=== PATIENT | male | born 1950 | race Caucasian/White ===

== ENCOUNTER 2016-07-10 11:04 | Observation (INO) | payer OTHER ==
[2016-07-10] MEDS ORDERED: NS 0.9% 1000 ML* 2,000 ML IV ONE ×2 (11:53→12:17)
[2016-07-10 12:06] LABS: Hematocrit 50 % (42-52); Hemoglobin 16.6 g/dl (14.0-18.0); Mean Corpuscular HGB Conc 33 g/dl (31-36); Mean Corpuscular Hemoglobin 29 pg (27-31); Mean Corpuscular Volume 87 fL (80-94); Mean Platelet Volume 10 um3 (7.4-10.4); Red Blood Count 5.72 10^6/ul (4.0-5.4); Red Cell Distribution Width 15 % (10.5-15); White Blood Count 7.4 10^3/ul (3.5-10.8)
[2016-07-10 12:18] LABS: Albumin 4.4 g/dL (3.2-5.2); BUN/Creatinine Ratio 18.8 (8-20); C Reactive Protein 4.48 mg/L (< 5.00); Calcium 9.6 mg/dL (8.6-10.3); EGFR African American 80.2 (>60); EGFR Non-African American 62.4 (>60); Globulin 2.8 g/dL (2-4); Magnesium 2.2 mg/dL (1.9-2.7); Potassium 4.1 mmol/L (3.5-5.0); Total Protein 7.2 g/dL (6.4-8.9)
[2016-07-10 12:20] LABS: Troponin I 0.01 ng/mL (<0.04)
[2016-07-10] MEDS ORDERED: Ondansetron INJ* 2 MG/ML VIAL IV ONE (12:20)
[2016-07-10] MEDS ORDERED: Meclizine TAB* 12.5 MG PO ONE (12:20)
[2016-07-10 12:27] LABS: TSH (Thyroid Stimulating Horm) 0.88 mcIU/mL (0.34-5.60)
--- NOTE | 2016-07-10 12:52 | RAD ---
HISTORY: Dizziness COMPARISONS: January 27, 2008 VIEWS:1: Single frontal portable view of the chest at 12:30 PM FINDINGS: LINES AND TUBES: None. CARDIOMEDIASTINAL SILHOUETTE: The cardiomediastinal silhouette is normal for portable technique. PLEURA: The costophrenic angles are sharp. No pleural abnormalities are noted. LUNG PARENCHYMA: The lungs are clear. ABDOMEN: The upper abdomen is clear. There is no subphrenic gas. BONES AND SOFT TISSUES: No bone or soft tissue abnormalities are noted. IMPRESSION: NO ACTIVE CARDIOPULMONARY DISEASE.
[2016-07-10 12:54] LABS: Urine Bilirubin Negative (Negative); Urine Glucose Negative (Negative); Urine Nitrite Negative (Negative)
--- NOTE | 2016-07-10 13:00 | RAD ---
Indication: Headaches, dizziness. CT of the brain was performed without IV contrast. Ventricular structures are midline. No midline shift is noted. The extraction spaces are unremarkable. There is no evidence of intracranial mass or hemorrhage. No other high or low density lesions are identified. Mastoid air cells and paranasal sinuses are otherwise unremarkable. IMPRESSION: No intracranial mass or hemorrhage is noted.
[2016-07-10] MEDS ORDERED: Aspirin Low Dose CHEW TAB* 81 MG PO ONE (13:45)
[2016-07-10] MEDS ORDERED: Ondansetron INJ* 2 MG/ML VIAL IV PRN (14:31)
[2016-07-10] MEDS ORDERED: Acetaminophen TAB* 325 MG PO PRN (14:31)
[2016-07-10] MEDS ORDERED: Meclizine TAB* 12.5 MG PO PRN (14:33)
--- NOTE | 2016-07-10 16:33 | HP ---
ADMISSION HISTORY AND PHYSICAL: DATE OF ADMISSION: 07/10/16 PRIMARY CARE PROVIDER: Dr. Harvey. ADMITTING PROVIDER: AMRITA Grace SUPERVISING PHYSICIAN: Dr. Heather Jenkins.* (DICTATED BY AMRITA GRACE) CHIEF COMPLAINT: Dizziness, diaphoresis, left arm ache, and mild chest pain. HISTORY OF PRESENT ILLNESS: This is a 66-year-old gentleman with obesity, hypertension, and history of vertigo, who presents to the emergency department with complaints of dizziness accompanied by significant diaphoresis and ache in his left arm and some mild substernal pain. Symptoms were present when he awoke this morning and seemed to have improved since reaching the emergency department. The patient does have multiple episodes of vertigo in the past, and he did receive a dose of meclizine upon reaching the emergency department and his dizziness seems to have subsided. The diaphoresis, left arm ache, and chest pain or pressure are certainly new symptoms for him and were concerning enough that his encouraged him to seek care in the emergency department. PAST MEDICAL HISTORY: 1. Hypertension. 2. Vertigo. 3. Obesity. PAST SURGICAL HISTORY: Varicose vein stripping procedure which was complicated by severe infection. HOME MEDICATIONS: 1. Losartan/hydrochlorothiazide 50/12.5 one tab p.o. b.i.d. 2. Metoprolol succinate 25 mg p.o. b.i.d. FAMILY HISTORY: Denies any history of coronary artery disease. SOCIAL HISTORY: The patient lives at home with his . 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 Denies any smoking history. Has occasional alcohol consumption. REVIEW OF SYSTEMS: As noted in the HPI, otherwise negative PHYSICAL EXAMINATION GENERAL: This is a pleasant obese gentleman lying comfortably in a hospital stretcher, in no acute distress, accompanied by his . VITAL SIGNS: Initial vitals, temperature 98.1 degrees Fahrenheit, heart rate 71 beats per minute, respiratory rate 16, oxygen saturation 96% on room air, blood pressure 153/80 mmHg. HEENT: Head is normocephalic, atraumatic. Mucous membranes are pink and moist. RESPIRATORY: Lungs are clear to auscultation without wheezes, crackles, or rhonchi. CARDIOVASCULAR: Heart has regular rate and rhythm without murmurs, rubs, or gallops. ABDOMEN: Soft and nontender to palpation. EXTREMITIES: The patient has trace to 1+ lower extremity edema. PSYCH: The patient is alert and appropriately oriented. SKIN: Limited exam shows no concerning rashes or lesions. DIAGNOSTIC STUDIES/LAB DATA: CBC is largely unremarkable with a white blood cell count of 7400, hemoglobin 16.6 g/dL, and platelet count of 146,000. INR normal at 0.99. Comprehensive metabolic panel is unremarkable. Sodium of 137 mmol/L, potassium 4.1 mmol/L, serum bicarb of 30, BUN 22, creatinine 1.17 with estimated GFR of 62. Random glucose is 176 mg/dL. Troponin is negative at 0.01. CRP is essentially negative at 4.4. TSH is normal at 0.88. Urinalysis is unremarkable. Imaging: Chest x-ray shows no acute disease. CT of the head shows no acute disease. EKG shows a sinus rhythm with what looks to be left bundle branch block. Compared to EKG from 2008 this does appear similar. ASSESSMENT AND PLAN: This is a 66-year-old obese gentleman with history of hypertension and vertigo, who presents with dizziness, left arm pain, and subtle chest pain. 1. Chest pain - some of the patient's symptoms could be consistent with this being cardiac in origin. He has not had a recent stress test. He has risk factors including obesity, his age, and hypertension for heart disease. We plan to bring the patient in for an observation. We will maintain continuous telemetry monitoring, cycle troponins, and plan stress testing tomorrow morning. We will empirically start aspirin and a statin. We will perform fasting lipid panel in the morning. 2. Dizziness - the patient does have a history of vertigo and it seems this improved with meclizine. Whether or not this is interpreted as cardiac is difficult to say. We will treat with additional doses of meclizine if his dizziness returns, but at this time he is asymptomatic. 3. Hypertension - continue home antihypertensives including losartan and hydrochlorothiazide and metoprolol. 4. Hyperglycemia - his random glucose is 176. Plan to check to hemoglobin A1c. 5. Suspect sleep apnea - the patient is quite large with a thick neck and has also been complaining of fatigue for several months or perhaps years. Would recommend an outpatient sleep study to assess for obstructive sleep apnea. 6. Obesity with BMI of 45. 7. Code status - the patient is full code. 8. Healthcare proxy is his . 9. DVT prophylaxis - the patient is at moderate risk for DVT and will be placed on Lovenox 40 mg subcu daily. DISPOSITION: This is a 66-year-old male being admitted under observation status for chest pain equivalent with anticipated discharge tomorrow following stress testing. AMRITA GRACE CC: Dr. Harvey* [id number]/[facility] #: [id number] MTDD
[2016-07-10] MEDS: Enoxaparin(*) 40 MG/0.4 ML SYR SUBCUT SCH (16:59)
--- NOTE | 2016-07-10 20:56 | ED ---
Hattie Nolasco Janilya, scribed for Minor Aguirre MD on 07/10/16 at 1213 . Dizziness - HPI Summary HPI Summary: A 66 y/o male [place] [facility] w/ a sudden onset of constant dizziness starting this morning. Pt states he felt normal yesterday. When he woke up this morning, he felt somewhat dizzy. And in the kitchen, pt says "it suddenly hit me" with dizziness, SOB, cold sweats, and weakness. Pt reports he felt unstable on feet. Pt denies runny nose, ear pressure, cough, chest congestion, abd pain, diarrhea. Although pt does report nausea and vomiting. Now pt reports mild RODRIGES in frontal region. Pt takes HTN medicine; took the first dose this morning. PMHx vertigo since 2007; occurs pretty frequently whenever pt gets down on his knees. Pt does not take med for vertigo. At 1334, on re-eval, pt also reports left arm discomfort and lower sternal CP. - History Of Current Complaint Chief Complaint: EDDizziness Stated Complaint: DIZZINESS/WEAKNESS/PAIN ELBOW Time Seen by Provider: 07/10/16 12:05 Hx Obtained From: Patient Onset/Duration: Suddenly Timing: Constant Severity Initially: Moderate Severity Currently: Moderate Character: Head Spinning, Room Spinning, Weak, Dizzy Aggravating Factor(s): Nothing Alleviating Factor(s): Nothing Associated Signs And Symptoms: Positive: Nausea, Vomiting, SOB, Chills. Negative: Diarrhea - Allergies/Home Medications Allergies/Adverse Reactions: Allergies Allergy/AdvReac Type Severity Reaction Status Date / Time Penicillins Allergy Unknown Rash Verified 07/10/16 11:26 Home Medications: Home Medications Losartan Potassium & Hydrochlo [Hyzaar 50/12.5 mg] 1 tab PO BID 07/10/16 [ History Confirmed 07/10/16] PMH/Surg Hx/FS Hx/Imm Hx Cardiovascular History: Reports: Hx Hypertension Sensory History: Reports: Hx Contacts or Glasses - glasses Denies: Hx Hearing Aid Opthamlomology History: Reports: Hx Contacts or Glasses - glasses - Surgical History Surgery Procedure, Year, and Place: [place] [facility] [place] [facility] [place] [facility] Anesthesia Reactions: No Infectious Disease History: Yes Infectious Disease History: Denies: Traveled Outside the [place] in Last 30 Days - Family History Known Family History: Positive: Diabetes - mother Negative: Cardiac Disease, Hypertension - Social History Lives: With Family Alcohol Use: None Substance Use Type: Reports: None Smoking Status (MU): Never Smoked Tobacco Review of Systems Positive: Chills ENT: Negative - pt denies ear pressure Negative: Nasal Discharge Cardiovascular: Negative - pt denies chest congestion Positive: Shortness Of Breath. Negative: Cough Positive: Vomiting, Nausea. Negative: Abdominal Pain, Diarrhea Neurological: Other - dizziness Positive: Headache, Weakness All Other Systems Reviewed And Are Negative: Yes Physical Exam Triage Information Reviewed: Yes Vital Signs On Initial Exam: Initial Vitals Temp Pulse Resp BP Pulse Ox 98.1 F 66 16 155/76 97 07/10/16 11:06 07/10/16 11:06 07/10/16 11:06 07/10/16 11:06 07/10/16 11:06 Vital Signs Reviewed: Yes Appearance: Positive: Well-Appearing, No Pain Distress Skin: Positive: Warm, Skin Color Reflects Adequate Perfusion, Dry Head/Face: Positive: Normal Head/Face Inspection Eyes: Positive: EOMI, MIREYA ENT: Positive: Normal ENT inspection Neck: Positive: Supple, Nontender Respiratory/Lung Sounds: Positive: Clear to Auscultation, Breath Sounds Present Cardiovascular: Positive: RRR Abdomen Description: Positive: Nontender, Soft Bowel Sounds: Positive: Present Musculoskeletal: Positive: Normal, Strength/ROM Intact Neurological: Positive: Normal, Sensory/Motor Intact, Alert, Oriented to Person Place, Time Psychiatric: Positive: Affect/Mood Appropriate - [place] Coma Scale Coma Scale Total: 15 Diagnostics - Vital Signs Vital Signs Temp Pulse Resp BP Pulse Ox 07/10/16 11:26 70 16 153/80 96 07/10/16 11:24 98.1 F 72 17 153/80 97 07/10/16 11:23 22 07/10/16 11:06 98.1 F 66 16 155/76 97 - Laboratory Lab Results: Lab Results 07/10/16 07/10/16 07/10/16 Range/Units 11:18 11:18 11:18 WBC 7.4 (3.5-10.8) 10^3/ul RBC 5.72 H (4.0-5.4) 10^6/ul Hgb 16.6 (14.0-18.0) g/dl Hct 50 (42-52) % MCV 87 (80-94) fL MCH 29 (27-31) pg MCHC 33 (31-36) g/dl RDW 15 (10.5-15) % Plt Count 146 L (150-450) 10^3/ul MPV 10 (7.4-10.4) um3 Neut % (Auto) 73.1 (38-83) % Lymph % (Auto) 16.8 L (25-47) % [place] % (Auto) 7.4 (1-9) % Eos % (Auto) 2.2 (0-6) % Baso % (Auto) 0.5 (0-2) % Absolute Neuts (auto) 5.4 (1.5-7.7) 10^3/ul Absolute Lymphs (auto) 1.2 (1.0-4.8) 10^3/ul Absolute Monos (auto) 0.5 (0-0.8) 10^3/ul Absolute Eos (auto) 0.2 (0-0.6) 10^3/ul Absolute Basos (auto) 0 (0-0.2) 10^3/ul Absolute Nucleated RBC 0.01 10^3/ul Nucleated RBC % 0.2 INR (Anticoag Therapy) (0.89-1.11) Sodium 137 (133-145) mmol/L Potassium 4.1 (3.5-5.0) mmol/L Chloride 101 (101-111) mmol/L Carbon Dioxide 30 (22-32) mmol/L Anion Gap 6 (2-11) mmol/L BUN 22 (6-24) mg/dL Creatinine 1.17 (0.67-1.17) mg/dL Est GFR ( Amer) 80.2 (>60) Est GFR (Non-Af Amer) 62.4 (>60) BUN/Creatinine Ratio 18.8 (8-20) Glucose 176 H (70-100) mg/dL Hemoglobin A1c (Less than 6.0) % Lactic Acid 1.9 (0.5-2.0) mmol/L Calcium 9.6 (8.6-10.3) mg/dL Magnesium 2.2 (1.9-2.7) mg/dL Total Bilirubin 1.00 (0.2-1.0) mg/dL AST 29 (13-39) U/L ALT 41 (7-52) U/L Alkaline Phosphatase 53 (34-104) U/L Troponin I 0.01 (<0.04) ng/mL C-Reactive Protein 4.48 (< 5.00) mg/L B-Natriuretic Peptide ( - 100) pg/mL Total Protein 7.2 (6.4-8.9) g/dL Albumin 4.4 (3.2-5.2) g/dL Globulin 2.8 (2-4) g/dL Albumin/Globulin Ratio 1.6 (1-3) TSH 0.88 (0.34-5.60) mcIU/mL Urine Color Urine Appearance Urine pH (5-9) Ur Specific [place] (1.010-1.030) Urine Protein (Negative) Urine Ketones (Negative) Urine Blood (Negative) Urine Nitrate (Negative) Urine Bilirubin (Negative) Urine Urobilinogen (Negative) Ur Leukocyte Esterase (Negative) Urine Glucose (Negative) 07/10/16 07/10/16 07/10/16 Range/Units 11:18 11:18 11:18 WBC (3.5-10.8) 10^3/ul RBC (4.0-5.4) 10^6/ul Hgb (14.0-18.0) g/dl Hct (42-52) % MCV (80-94) fL MCH (27-31) pg MCHC (31-36) g/dl RDW (10.5-15) % Plt Count (150-450) 10^3/ul MPV (7.4-10.4) um3 Neut % (Auto) (38-83) % Lymph % (Auto) (25-47) % [place] % (Auto) (1-9) % Eos % (Auto) (0-6) % Baso % (Auto) (0-2) % Absolute Neuts (auto) (1.5-7.7) 10^3/ul Absolute Lymphs (auto) (1.0-4.8) 10^3/ul Absolute Monos (auto) (0-0.8) 10^3/ul Absolute Eos (auto) (0-0.6) 10^3/ul Absolute Basos (auto) (0-0.2) 10^3/ul Absolute Nucleated RBC 10^3/ul Nucleated RBC % INR (Anticoag Therapy) 0.99 (0.89-1.11) Sodium (133-145) mmol/L Potassium (3.5-5.0) mmol/L Chloride (101-111) mmol/L Carbon Dioxide (22-32) mmol/L Anion Gap (2-11) mmol/L BUN (6-24) mg/dL Creatinine (0.67-1.17) mg/dL Est GFR ( Amer) (>60) Est GFR (Non-Af Amer) (>60) BUN/Creatinine Ratio (8-20) Glucose (70-100) mg/dL Hemoglobin A1c 6.4 H (Less than 6.0) % Lactic Acid (0.5-2.0) mmol/L Calcium (8.6-10.3) mg/dL Magnesium (1.9-2.7) mg/dL Total Bilirubin (0.2-1.0) mg/dL AST (13-39) U/L ALT (7-52) U/L Alkaline Phosphatase (34-104) U/L Troponin I (<0.04) ng/mL C-Reactive Protein (< 5.00) mg/L B-Natriuretic Peptide 25 ( - 100) pg/mL Total Protein (6.4-8.9) g/dL Albumin (3.2-5.2) g/dL Globulin (2-4) g/dL Albumin/Globulin Ratio (1-3) TSH (0.34-5.60) mcIU/mL Urine Color Urine Appearance Urine pH (5-9) Ur Specific [place] (1.010-1.030) Urine Protein (Negative) Urine Ketones (Negative) Urine Blood (Negative) Urine Nitrate (Negative) Urine Bilirubin (Negative) Urine Urobilinogen (Negative) Ur Leukocyte Esterase (Negative) Urine Glucose (Negative) 07/10/16 Range/Units 12:34 WBC (3.5-10.8) 10^3/ul RBC (4.0-5.4) 10^6/ul Hgb (14.0-18.0) g/dl Hct (42-52) % MCV (80-94) fL MCH (27-31) pg MCHC (31-36) g/dl RDW (10.5-15) % Plt Count (150-450) 10^3/ul MPV (7.4-10.4) um3 Neut % (Auto) (38-83) % Lymph % (Auto) (25-47) % [place] % (Auto) (1-9) % Eos % (Auto) (0-6) % Baso % (Auto) (0-2) % Absolute Neuts (auto) (1.5-7.7) 10^3/ul Absolute Lymphs (auto) (1.0-4.8) 10^3/ul Absolute Monos (auto) (0-0.8) 10^3/ul Absolute Eos (auto) (0-0.6) 10^3/ul Absolute Basos (auto) (0-0.2) 10^3/ul Absolute Nucleated RBC 10^3/ul Nucleated RBC % INR (Anticoag Therapy) (0.89-1.11) Sodium (133-145) mmol/L Potassium (3.5-5.0) mmol/L Chloride (101-111) mmol/L Carbon Dioxide (22-32) mmol/L Anion Gap (2-11) mmol/L BUN (6-24) mg/dL Creatinine (0.67-1.17) mg/dL Est GFR ( Amer) (>60) Est GFR (Non-Af Amer) (>60) BUN/Creatinine Ratio (8-20) Glucose (70-100) mg/dL Hemoglobin A1c (Less than 6.0) % Lactic Acid (0.5-2.0) mmol/L Calcium (8.6-10.3) mg/dL Magnesium (1.9-2.7) mg/dL Total Bilirubin (0.2-1.0) mg/dL AST (13-39) U/L ALT (7-52) U/L Alkaline Phosphatase (34-104) U/L Troponin I (<0.04) ng/mL C-Reactive Protein (< 5.00) mg/L B-Natriuretic Peptide ( - 100) pg/mL Total Protein (6.4-8.9) g/dL Albumin (3.2-5.2) g/dL Globulin (2-4) g/dL Albumin/Globulin Ratio (1-3) TSH (0.34-5.60) mcIU/mL Urine Color Yellow Urine Appearance Clear Urine pH 5.0 (5-9) Ur Specific [place] 1.010 (1.010-1.030) Urine Protein Negative (Negative) Urine Ketones Negative (Negative) Urine Blood Negative (Negative) Urine Nitrate Negative (Negative) Urine Bilirubin Negative (Negative) Urine Urobilinogen Negative (Negative) Ur Leukocyte Esterase Negative (Negative) Urine Glucose Negative (Negative) Result Diagrams: 07/10/16 11:18 07/10/16 11:18 Lab Statement: Any lab studies that have been ordered have been reviewed, and results considered in the medical decision making process. - Radiology CXR Xray Interpretation: No Acute Changes - IMPRESSION: No active cardiopulmonary disease. Radiology Interpretation Completed By: Radiologist - CT brain CT Interpretation: No Acute Changes - IMPRESSION: No intracranial mass or hemorrhage is noted CT Interpretation Completed By: Radiologist - EKG 1113 Cardiac Rate: NL - 75 bpm EKG Rhythm: Sinus Rhythm Ectopy: None EKG Interpretation: Widened QRS, minimal ST elevation anterior leads, flipped T waves in V6 Re-Evaluation - Re-Evaluation First Eval Re-Evaluation Time: 13:34 Change: Unchanged Comment: Pt also reports that he felt left arm discomfort and lower sternal CP this morning. Dizzy Course/Dx - Course Assessment/Plan: ADMIT HOSPITALIST STABLE - Diagnoses Provider Diagnoses: Chest pain, Dizziness - Provider Notifications Discussed Care Of Patient with: Dr. Jenkins (hospitalist) at 1341: agrees to admit pt. Discharge - Discharge Plan Condition: Stable Disposition: ADMITTED TO [facility] The documentation as recorded by the Hattie pereira Janilya accurately reflects the service I personally performed and the decisions made by me, iMnor Aguirre MD.
[2016-07-10] MEDS: Metoprolol Succinate XL TAB* 25 MG PO SCH (21:00)
[2016-07-10] MEDS ORDERED: Atorvastatin* 40 MG TAB PO SCH (21:00)
[2016-07-10] MEDS: Losartan TAB* 25 MG PO SCH (21:00)
[2016-07-10] MEDS: Hydrochlorothiazide TAB* 25 MG PO SCH (21:01)
[2016-07-11 06:20] LABS: HDL Cholesterol 31.5 mg/dL
[2016-07-11] MEDS ORDERED: Aspirin EC Low Dose* 81 MG TAB.EC PO SCH (09:00)
[2016-07-11] MEDS ORDERED: Pneumococcal *Vac Polyvalent 0.5 ML VIAL IM ONE (09:00)
[2016-07-11] MEDS ORDERED: Influenza VAC *QUAD* 2016-17* 0.5 ML SYRINGE IM ONE (09:00)
[2016-07-11] MEDS ORDERED: Regadenoson* 0.4 MG/5 ML SYRINGE ONE (12:50)
--- NOTE | 2016-07-11 13:52 | RAD ---
HISTORY: Chest pain, diabetes, hypertension, obesity, shortness of breath COMPARISONS: None TECHNIQUE: A 1 day stress/rest myocardial perfusion study was performed, with pharmacologic stress. The stress portion was monitored by Dr. Henriquez. Gated SPECT imaging was performed, without CT-based attenuation correction secondary patient body habitus DOSE: Stress: Technetium 99m tetrofosmin, 25.2 millicuries, injected at 12:15 PM on 07/11/2016 Rest: Technetium 99m tetrofosmin, 11 millicuries, injected at 8:15 AM on 07/11/2016 Pharmacologic agent: Lexiscan FINDINGS: CARDIAC MONITORING: No EKG changes of ischemia with stress EF: 52 % TID: 1.03 MOTION: Normal motion, with normal wall thickening. PERFUSION: There is a small focus of reversible photopenia towards the apex along the lateral wall OTHER: None IMPRESSION: SMALL FOCUS OF REVERSIBLE HYPOPERFUSION ALONG LATERAL WALL TOWARDS THE APEX SUGGESTIVE OF A SMALL AREA OF ISCHEMIA ASSESSMENT: LOW RISK. Based on imaging criteria from ACC/AHA 2002. Guideline Update for the Management of Patient's with Chronic Stable Angina, table 23. Noninvasive Risk Stratification.
--- NOTE | 2016-07-11 15:23 | PN ---
Subjective Date of Service: 07/11/16 Interval History: . Patient reports no further chest pain, dizziness or diaphoresis.Reports he is at his baseline and "feels silly for coming in ". denies any exertional CP, does reports he gets SOB with a lot of exertion but relates it to his weight. No LE edema. No recent fever or chills. reports hx of vertigo but states this was very atypical of his usual symptoms Objective Active Medications: Acetaminophen (Tylenol Tab*) 650 mg PO Q4H PRN PRN Reason: FEVER/PAIN Aspirin (Aspirin Ec Low Dose*) 81 mg PO DAILY [facility] Atorvastatin Calcium (Lipitor*) 40 mg PO 2100 [facility] Last Admin: 07/10/16 21:00 Dose: 40 mg Enoxaparin Sodium (Lovenox(*)) 40 mg SUBCUT Q24H [facility] Last Admin: 07/10/16 16:59 Dose: 40 mg Hydrochlorothiazide (Hydrodiuril Tab*) 12.5 mg PO BID [facility] Last Admin: 07/10/16 21:01 Dose: 12.5 mg Losartan Potassium (Cozaar Tab*) 50 mg PO BID [facility] Last Admin: 07/10/16 21:00 Dose: 50 mg Meclizine HCl (Antivert Tab*) 25 mg PO Q8HR PRN PRN Reason: dizziness Metoprolol Succinate (Toprol Xl Tab*) 25 mg PO BID [facility] Last Admin: 07/10/16 21:00 Dose: 25 mg Ondansetron HCl (Zofran Inj*) 4 mg IV Q4H PRN PRN Reason: NAUSEA/VOMITING Vital Signs 07/10/16 07/10/16 07/10/16 15:30 15:37 15:45 Temperature Pulse Rate 63 65 63 Respiratory Rate Blood Pressure 136/39 156/77 188/87 (mmHg) O2 Sat by Pulse 95 96 92 Oximetry 07/10/16 07/10/16 07/10/16 15:46 15:49 16:00 Temperature 98 F Pulse Rate 67 67 67 Respiratory 17 Rate Blood Pressure 143/78 192/100 147/80 (mmHg) O2 Sat by Pulse 95 95 Oximetry 07/10/16 07/10/16 07/10/16 16:28 16:30 19:22 Temperature 97.4 F 97.7 F Pulse Rate 63 73 Respiratory 18 18 17 Rate Blood Pressure 151/85 133/51 (mmHg) O2 Sat by Pulse 96 96 Oximetry 07/10/16 07/11/16 07/11/16 20:00 00:02 03:47 Temperature 98.3 F 97.7 F Pulse Rate 83 70 Respiratory 16 20 20 Rate Blood Pressure 127/72 128/78 (mmHg) O2 Sat by Pulse 93 93 Oximetry 07/11/16 07/11/16 07/11/16 07:15 07:57 10:54 Temperature 98.2 F 98.1 F Pulse Rate 69 65 69 Respiratory 18 18 Rate Blood Pressure 154/79 159/82 (mmHg) O2 Sat by Pulse 93 94 Oximetry Oxygen Devices in Use Now: None Appearance: A+O x3 sitting up in a chiar in NAD. Eyes: No Scleral Icterus, PERRLA Ears/Nose/Mouth/Throat: NL Teeth, Lips, Gums, Mucous Membranes Moist Neck: NL Appearance and Movements; NL JVP Respiratory: Symmetrical Chest Expansion and Respiratory Effort, Clear to Auscultation Cardiovascular: NL Sounds; No Murmurs; No JVD, RRR, No Edema Abdominal: NL Sounds; No Tenderness; No Distention, - - obese Lymphatic: No Cervical Adenopathy Extremities: No Edema, No Clubbing, Cyanosis Skin: No Rash or Ulcers, No Nodules or Sclerosis Neurological: Alert and Oriented x 3, NL Sensation, NL Gait, NL Muscle Strength and Tone Lines/Tubes/Other Access: Clean, Dry and Intact Peripheral IV Nutrition: Taking PO's Result Diagrams: 07/10/16 11:18 07/10/16 11:18 Additional Lab and Data: Lab Results 07/10/16 07/10/16 07/10/16 Range/Units 11:18 11:18 11:18 WBC 7.4 (3.5-10.8) 10^3/ul RBC 5.72 H (4.0-5.4) 10^6/ul Hgb 16.6 (14.0-18.0) g/dl Hct 50 (42-52) % MCV 87 (80-94) fL MCH 29 (27-31) pg MCHC 33 (31-36) g/dl RDW 15 (10.5-15) % Plt Count 146 L (150-450) 10^3/ul MPV 10 (7.4-10.4) um3 Neut % (Auto) 73.1 (38-83) % Lymph % (Auto) 16.8 L (25-47) % Hanson % (Auto) 7.4 (1-9) % Eos % (Auto) 2.2 (0-6) % Baso % (Auto) 0.5 (0-2) % Absolute Neuts (auto) 5.4 (1.5-7.7) 10^3/ul Absolute Lymphs (auto) 1.2 (1.0-4.8) 10^3/ul Absolute Monos (auto) 0.5 (0-0.8) 10^3/ul Absolute Eos (auto) 0.2 (0-0.6) 10^3/ul Absolute Basos (auto) 0 (0-0.2) 10^3/ul Absolute Nucleated RBC 0.01 10^3/ul Nucleated RBC % 0.2 INR (Anticoag Therapy) (0.89-1.11) Sodium 137 (133-145) mmol/L Potassium 4.1 (3.5-5.0) mmol/L Chloride 101 (101-111) mmol/L Carbon Dioxide 30 (22-32) mmol/L Anion Gap 6 (2-11) mmol/L BUN 22 (6-24) mg/dL Creatinine 1.17 (0.67-1.17) mg/dL Est GFR ( Amer) 80.2 (>60) Est GFR (Non-Af Amer) 62.4 (>60) BUN/Creatinine Ratio 18.8 (8-20) Glucose 176 H (70-100) mg/dL Hemoglobin A1c (Less than 6.0) % Lactic Acid 1.9 (0.5-2.0) mmol/L Calcium 9.6 (8.6-10.3) mg/dL Magnesium 2.2 (1.9-2.7) mg/dL Total Bilirubin 1.00 (0.2-1.0) mg/dL AST 29 (13-39) U/L ALT 41 (7-52) U/L Alkaline Phosphatase 53 (34-104) U/L Troponin I 0.01 (<0.04) ng/mL C-Reactive Protein 4.48 (< 5.00) mg/L B-Natriuretic Peptide ( - 100) pg/mL Total Protein 7.2 (6.4-8.9) g/dL Albumin 4.4 (3.2-5.2) g/dL Globulin 2.8 (2-4) g/dL Albumin/Globulin Ratio 1.6 (1-3) TSH 0.88 (0.34-5.60) mcIU/mL Urine Color Urine Appearance Urine pH (5-9) Ur Specific [place] (1.010-1.030) Urine Protein (Negative) Urine Ketones (Negative) Urine Blood (Negative) Urine Nitrate (Negative) Urine Bilirubin (Negative) Urine Urobilinogen (Negative) Ur Leukocyte Esterase (Negative) Urine Glucose (Negative) 07/10/16 07/10/16 07/10/16 Range/Units 11:18 11:18 11:18 WBC (3.5-10.8) 10^3/ul RBC (4.0-5.4) 10^6/ul Hgb (14.0-18.0) g/dl Hct (42-52) % MCV (80-94) fL MCH (27-31) pg MCHC (31-36) g/dl RDW (10.5-15) % Plt Count (150-450) 10^3/ul MPV (7.4-10.4) um3 Neut % (Auto) (38-83) % Lymph % (Auto) (25-47) % Hanson % (Auto) (1-9) % Eos % (Auto) (0-6) % Baso % (Auto) (0-2) % Absolute Neuts (auto) (1.5-7.7) 10^3/ul Absolute Lymphs (auto) (1.0-4.8) 10^3/ul Absolute Monos (auto) (0-0.8) 10^3/ul Absolute Eos (auto) (0-0.6) 10^3/ul Absolute Basos (auto) (0-0.2) 10^3/ul Absolute Nucleated RBC 10^3/ul Nucleated RBC % INR (Anticoag Therapy) 0.99 (0.89-1.11) Sodium (133-145) mmol/L Potassium (3.5-5.0) mmol/L Chloride (101-111) mmol/L Carbon Dioxide (22-32) mmol/L Anion Gap (2-11) mmol/L BUN (6-24) mg/dL Creatinine (0.67-1.17) mg/dL Est GFR ( Amer) (>60) Est GFR (Non-Af Amer) (>60) BUN/Creatinine Ratio (8-20) Glucose (70-100) mg/dL Hemoglobin A1c 6.4 H (Less than 6.0) % Lactic Acid (0.5-2.0) mmol/L Calcium (8.6-10.3) mg/dL Magnesium (1.9-2.7) mg/dL Total Bilirubin (0.2-1.0) mg/dL AST (13-39) U/L ALT (7-52) U/L Alkaline Phosphatase (34-104) U/L Troponin I (<0.04) ng/mL C-Reactive Protein (< 5.00) mg/L B-Natriuretic Peptide 25 ( - 100) pg/mL Total Protein (6.4-8.9) g/dL Albumin (3.2-5.2) g/dL Globulin (2-4) g/dL Albumin/Globulin Ratio (1-3) TSH (0.34-5.60) mcIU/mL Urine Color Urine Appearance Urine pH (5-9) Ur Specific [place] (1.010-1.030) Urine Protein (Negative) Urine Ketones (Negative) Urine Blood (Negative) Urine Nitrate (Negative) Urine Bilirubin (Negative) Urine Urobilinogen (Negative) Ur Leukocyte Esterase (Negative) Urine Glucose (Negative) 07/10/16 Range/Units 12:34 WBC (3.5-10.8) 10^3/ul RBC (4.0-5.4) 10^6/ul Hgb (14.0-18.0) g/dl Hct (42-52) % MCV (80-94) fL MCH (27-31) pg MCHC (31-36) g/dl RDW (10.5-15) % Plt Count (150-450) 10^3/ul MPV (7.4-10.4) um3 Neut % (Auto) (38-83) % Lymph % (Auto) (25-47) % Hanson % (Auto) (1-9) % Eos % (Auto) (0-6) % Baso % (Auto) (0-2) % Absolute Neuts (auto) (1.5-7.7) 10^3/ul Absolute Lymphs (auto) (1.0-4.8) 10^3/ul Absolute Monos (auto) (0-0.8) 10^3/ul Absolute Eos (auto) (0-0.6) 10^3/ul Absolute Basos (auto) (0-0.2) 10^3/ul Absolute Nucleated RBC 10^3/ul Nucleated RBC % INR (Anticoag Therapy) (0.89-1.11) Sodium (133-145) mmol/L Potassium (3.5-5.0) mmol/L Chloride (101-111) mmol/L Carbon Dioxide (22-32) mmol/L Anion Gap (2-11) mmol/L BUN (6-24) mg/dL Creatinine (0.67-1.17) mg/dL Est GFR ( Amer) (>60) Est GFR (Non-Af Amer) (>60) BUN/Creatinine Ratio (8-20) Glucose (70-100) mg/dL Hemoglobin A1c (Less than 6.0) % Lactic Acid (0.5-2.0) mmol/L Calcium (8.6-10.3) mg/dL Magnesium (1.9-2.7) mg/dL Total Bilirubin (0.2-1.0) mg/dL AST (13-39) U/L ALT (7-52) U/L Alkaline Phosphatase (34-104) U/L Troponin I (<0.04) ng/mL C-Reactive Protein (< 5.00) mg/L B-Natriuretic Peptide ( - 100) pg/mL Total Protein (6.4-8.9) g/dL Albumin (3.2-5.2) g/dL Globulin (2-4) g/dL Albumin/Globulin Ratio (1-3) TSH (0.34-5.60) mcIU/mL Urine Color Yellow Urine Appearance Clear Urine pH 5.0 (5-9) Ur Specific [place] 1.010 (1.010-1.030) Urine Protein Negative (Negative) Urine Ketones Negative (Negative) Urine Blood Negative (Negative) Urine Nitrate Negative (Negative) Urine Bilirubin Negative (Negative) Urine Urobilinogen Negative (Negative) Ur Leukocyte Esterase Negative (Negative) Urine Glucose Negative (Negative) Microbiology and Other Data: Microbiology 07/10/16 15:40 Nasal Screen MRSA (PCR)(HERNANDEZ) - Final Nasal Mrsa Negative Assess/Plan/Problems-Billing Assessment: Mr. Sifuentes is a 66 yo male who with a PMH of HTN, Morbid Obesity who presented 07/10 with c/o chest pain, dizziness, diaphoresis - Patient Problems (1) Chest pain Comment: -Troponins 0.01 x 3. No EKG changes. No further CP. - No Lexiscan induced myocardial ischemia by EKG criteria. Cardiac Nuclear: " low risk, small focus of reversible hypoperfusion along the lateral wall towards the apex suggestive of a small area of ischemia" - side consult Dr. Henriquez who reviewed the nuclear images - possible very small area of ischemia but could be attenuation - plan for f/u with Dr. Boggs as an outpt - start ASA, Statin, continue metoprolol - start ASA, statin, nitro SL - follow up with Medical Billing Representative Dr. Boggs (2) Morbid obesity with BMI of 45.0-49.9, adult SNOMED Code(s): 575190473 Comment: - [facility] (3) Prediabetes Comment: - HgbA1C 6.4 - Strongly recommend diet and exercise; referral [facility] - follow up closely with pcp (4) DVT prophylaxis Comment: keshawn (5) Full code status Status and Disposition: OBV for Chest Pain.
[2016-07-11] MEDS: Hydrochlorothiazide TAB* 25 MG PO SCH (16:43)
[2016-07-11] MEDS: Metoprolol Succinate XL TAB* 25 MG PO SCH (16:44)
[2016-07-11] MEDS: Losartan TAB* 25 MG PO SCH (16:44)
[2016-07-11] MEDS: Enoxaparin(*) 40 MG/0.4 ML SYR SUBCUT SCH (16:54)
[2016-07-11 17:32] VITALS: BP 142/95
--- NOTE | 2016-07-12 11:59 | DS ---
DISCHARGE SUMMARY: DATE OF ADMISSION: 07/10/16 DATE OF DISCHARGE: 07/11/16 PROVIDER: Van Torres NP ATTENDING PHYSICIAN: Dr. Martines* (report dictated by Van Torres NP). PRIMARY CARE PROVIDER: Dr. Harvey. REFERRING TO: Wire Fence Builder, Dr. Boggs. PRIMARY DIAGNOSES: 1. Chest pain, unknown etiology, negative workup for acute coronary syndrome. 2. Morbid obesity. 3. Prediabetic. SECONDARY DIAGNOSES: 1. Hypertension. 2. Vertigo. DISCHARGE MEDICATIONS: 1. Hyzaar 50/12.5 mg one tab p.o. b.i.d. 2. Metoprolol tartrate 25 mg p.o. b.i.d. (please note that this is change from metoprolol succinate b.i.d.) 3. Meclizine 25 mg p.o. q.8 hours p.r.n. vertigo. 4. Atorvastatin 40 mg p.o. at bedtime (new medication). 5. Aspirin 81 mg p.o. daily (new medication). 6. Nitroglycerin 0.4 mg sublingual as needed p.r.n. (new medication). HISTORY OF PRESENT ILLNESS AND HOSPITAL COURSE: Please see history and physical by AMRITA Marie, for full admission details, but in summary, this is a 66-year- old male with a past medical history of morbid obesity, hypertension, history of vertigo, who presented to the emergency department on 07/10/16 with report of dizziness, diaphoresis, mid sternal chest pain, and left arm ache. The patient reports that he was sitting in his kitchen table the day he presented to the emergency department, had a sudden onset of midsternal chest pain, then experienced what he states as extreme dizziness, became diaphoretic and noted some left arm ache. The patient reports that this lasted for several minutes and resolved and he came to the emergency department for further evaluation. The patient was admitted to the hospitalist service and monitored on telemetry. He has had three troponins all of 0.01. He has had no noted EKG changes. He has had no further episodes of chest pain or dizziness. The patient underwent a cardiac nuclear stress test with Lexiscan. The Lexiscan showed no induced myocardial ischemia by EKG criteria. The nuclear cardiac test assessed him to be at low risk and did show a "small focus of reversible hypoperfusion along the lateral wall towards the apex suggestive of small area of ischemia." I spoke with gas check pad maker, Dr. Henriquez, who reviewed the nuclear images himself and stated that it is possible there is a very small area of reversible ischemia; however, it could also be attenuation and due to the patient's morbid obesity, it is difficult to distinguish. Recommendation was for medical management only at this time and refer the patient to Dr. Boggs as an outpatient. The patient was started on aspirin, statin, and was already on metoprolol at home. Please note I did change the metoprolol succinate to metoprolol tartrate b.i.d. as well the patient was sent home with a prescription for nitro sublingual. The patient reports that he has never had chest pain before this episode and is fairly active. However, he does report that due to his weight, he does feel short of breath more easily. The patient and I discussed diet changes in regards to his weight as well as his hemoglobin A1c is noted to be 6.4 diagnosing him as prediabetes. The patient would like to wait to start medication and try to reverse his prediabetes with diet and exercise. I have referred the patient to [facility] and strongly recommended the patient follow up with consultation with registered dietitian as well as closely follow up with his primary care provider. DISCHARGE PLAN: 1. The patient is stable for discharge to home. 2. The patient was instructed to call Dr. Boggs, gas check pad maker, for a followup appointment. 3. Follow up with PCP within 3 to 5 days. 4. Encouraged heart-healthy diet, antiinflammatory diet with low sugar and removing processed foods. 5. The patient should have a followup hemoglobin A1c in 3 months. 6. Code status: Full code. TIME SPENT: Approximately 60 minutes was spent on this discharge. VAN TORRES NP CC: Dr. Harvey; Dr. Boggs* [id number]/[facility] #: [id number] MTDD
== END 2016-07-11 17:40 | disposition home or self-care (01) ==
LOC: ED 11:04 → MEDTELE 13:44
PROVIDERS: ADMIT Hospitalist; ATTEND Internal Medicine
DX: R07.9 Chest pain, unspecified (principal); R42 Dizziness and giddiness; R61 Generalized hyperhidrosis; M79.602 Pain in left arm; E66.01 Morbid (severe) obesity due to excess calories; Z68.42 Body mass index [BMI] 45.0-49.9, adult; R73.03 Prediabetes; I10 Essential (primary) hypertension; R94.31 Abnormal electrocardiogram [ECG] [EKG]; Z79.82 Long term (current) use of aspirin; Z79.899 Other long term (current) drug therapy; Z88.0 Allergy status to penicillin; Z23 Encounter for immunization
CPT/HCPCS: 36415; 70450; 71010; 78452; 80053; 80061; 81003; 83036; 83605; 83735; 83880; 84443; 84484; 85025; 85610; 86140; 87641; 90471; 90686; 93005; 96361; 96374; 99284; A9270-GY; A9502; G0008; G0378; J1650; J2405; J2785

== ENCOUNTER 2020-03-28 10:41 | Inpatient (IN) ==
[2020-03-28] MEDS ORDERED: NS 0.9% 1000 ml BAG 1,000 ML IV ONE ×2 (13:01→13:02)
[2020-03-28 14:53] LABS: ABS Eosinophils 0.1 10^3/ul (0-0.6); ABS Lymphocytes 1.6 10^3/ul (1.0-4.8); ABS Monocytes 0.6 10^3/ul (0-0.8); ABS Neutrophils 4.4 10^3/ul (1.5-7.7); Eosinophil % 2.1 %; Hematocrit 35 % (42-52); Hemoglobin 11.4 g/dL (14.0-18.0); Lymphocyte % 23.7 %; Mean Corpuscular HGB Conc 33 g/dL (31-36); Mean Corpuscular Hemoglobin 29 pg (27-31); Mean Corpuscular Volume 87 fL (80-94); Mean Platelet Volume 9.6 fL (7.4-10.4); Platelet Count 163 10^3/uL (150-450); Red Blood Count 3.96 10^6 /uL (4.18-5.48); Red Cell Distribution Width 14 % (10-15); White Blood Count 6.8 10^3/uL (3.5-10.8)
[2020-03-28 15:12] LABS: INR 1.15 (0.82-1.09)
[2020-03-28 15:16] LABS: Albumin 3.7 g/dL (3.2-5.2); Albumin/Globulin Ratio 1.8 (1-3); BUN/Creatinine Ratio 53.9 (8-20); Calcium 8.9 mg/dL (8.6-10.3); EGFR African American 87.6 (>60); EGFR Non-African American 72.4 (>60); Globulin 2.1 g/dL (2-4); Potassium 4.2 mmol/L (3.5-5.0); Total Protein 5.8 g/dL (6.4-8.9)
[2020-03-28] MEDS ORDERED: Iohexol 300 (CONTRAST) 10 ML SDV IV ONE (15:33)
[2020-03-28] MEDS ORDERED: Pantoprazole 80 mg in NS BAG 80 MG/250 ML BAG IV ONE (15:55)
[2020-03-28] MEDS: Pantoprazole 80 mg in NS BAG 80 MG/250 ML BAG IV SCH (20:01)
[2020-03-28 21:44] LABS: Hematocrit 31 % (42-52); Hemoglobin 10.2 g/dL (14.0-18.0)
[2020-03-29] MEDS: Pantoprazole 80 mg in NS BAG 80 MG/250 ML BAG IV SCH ×2 (03:40→15:30)
[2020-03-29 08:07] LABS: ABS Eosinophils 0.3 10^3/ul (0-0.6); ABS Lymphocytes 1.7 10^3/ul (1.0-4.8); ABS Monocytes 0.6 10^3/ul (0-0.8); Eosinophil % 3.9 %; Hematocrit 31 % (42-52); Hemoglobin 10.5 g/dL (14.0-18.0); Mean Corpuscular HGB Conc 34 g/dL (31-36); Mean Corpuscular Hemoglobin 30 pg (27-31); Mean Corpuscular Volume 87 fL (80-94); Mean Platelet Volume 9.9 fL (7.4-10.4); Platelet Count 147 10^3/uL (150-450); Red Blood Count 3.56 10^6 /uL (4.18-5.48); Red Cell Distribution Width 15 % (10-15); White Blood Count 6.7 10^3/uL (3.5-10.8)
[2020-03-29 08:18] LABS: BUN/Creatinine Ratio 34.8 (8-20); Calcium 8.4 mg/dL (8.6-10.3); EGFR African American 98.7 (>60); EGFR Non-African American 81.6 (>60); Potassium 3.8 mmol/L (3.5-5.0)
[2020-03-29] MEDS ORDERED: Pneumococcal Vac 23-Polyvalent IM ONE (09:00)
[2020-03-29] MEDS ORDERED: Influenza VAC *QUAD* 2020-21* 0.5 ML SYRINGE IM ONE (09:00)
[2020-03-29] MEDS ORDERED: fentaNYL 100 mcg/2 ml 50 MCG/ML VIAL ONE (14:07)
[2020-03-29] MEDS ORDERED: Midazolam 10 mg/10 ml VIAL 1 mg/ml 10 ml VIAL (10 mg) ONE (14:07)
[2020-03-30] MEDS: Pantoprazole 80 mg in NS BAG 80 MG/250 ML BAG IV SCH ×3 (01:21→23:07)
[2020-03-30 07:15] LABS: Hematocrit 28 % (42-52); Hemoglobin 9.4 g/dL (14.0-18.0); Mean Corpuscular HGB Conc 34 g/dL (31-36); Mean Corpuscular Hemoglobin 30 pg (27-31); Mean Corpuscular Volume 87 fL (80-94); Platelet Count 118 10^3/uL (150-450); Red Blood Count 3.16 10^6 /uL (4.18-5.48); Red Cell Distribution Width 14 % (10-15); White Blood Count 5.4 10^3/uL (3.5-10.8)
[2020-03-31 06:46] LABS: ABS Eosinophils 0.3 10^3/ul (0-0.6); ABS Lymphocytes 1.2 10^3/ul (1.0-4.8); ABS Monocytes 0.4 10^3/ul (0-0.8); ABS Neutrophils 2.7 10^3/ul (1.5-7.7); Eosinophil % 5.6 %; Hematocrit 27 % (42-52); Hemoglobin 9.4 g/dL (14.0-18.0); Lymphocyte % 26.2 %; Mean Corpuscular HGB Conc 35 g/dL (31-36); Mean Corpuscular Hemoglobin 30 pg (27-31); Mean Corpuscular Volume 87 fL (80-94); Platelet Count 115 10^3/uL (150-450); Red Blood Count 3.14 10^6 /uL (4.18-5.48); Red Cell Distribution Width 15 % (10-15); White Blood Count 4.5 10^3/uL (3.5-10.8)
[2020-03-31 07:10] LABS: BUN/Creatinine Ratio 12.3 (8-20); Calcium 8.6 mg/dL (8.6-10.3); EGFR African American 83.8 (>60); EGFR Non-African American 69.3 (>60); Potassium 3.8 mmol/L (3.5-5.0)
[2020-03-31] MEDS ORDERED: Nystatin TOP POWDER 15 GM BTL TOPICAL SCH (09:00)
[2020-03-31] MEDS: Pantoprazole 80 mg in NS BAG 80 MG/250 ML BAG IV SCH (09:13)
[2020-03-31 11:20] VITALS: BP 123/58
[2020-03-31] MEDS ORDERED: BIOFREEZE ROLL ON TOPICAL PRN (12:58)
== END 2020-03-31 15:40 | disposition home or self-care (01) | DRG 811 ==
LOC: SSU 10:41 → ED 10:41
PROVIDERS: ADMIT Hospitalist; ATTEND Hospitalist

== ENCOUNTER 2022-07-24 11:26 | Inpatient (IN) ==
[2022-07-24 12:17] LABS: ABS Eosinophils 0.2 10^3/ul (0-0.6); ABS Lymphocytes 1.2 10^3/ul (1.0-4.8); ABS Monocytes 0.9 10^3/ul (0-0.8); ABS Neutrophils 4.3 10^3/ul (1.5-7.7); Eosinophil % 3.3 %; Hematocrit 50 % (42-52); Hemoglobin 16.1 g/dL (14.0-18.0); Lymphocyte % 18.4 %; Mean Corpuscular HGB Conc 32 g/dL (31-36); Mean Corpuscular Hemoglobin 28 pg (27-31); Mean Corpuscular Volume 86 fL (80-94); Mean Platelet Volume 9.2 fL (7.4-10.4); Platelet Count 122 10^3/uL (150-450); Red Blood Count 5.86 10^6 /uL (4.18-5.48); Red Cell Distribution Width 16 % (10-15); White Blood Count 6.7 10^3/uL (3.5-10.8)
[2022-07-24 12:56] LABS: Albumin 3.7 g/dL (3.2-5.2); Albumin/Globulin Ratio 1.8 (1-3); Calcium 8.8 mg/dL (8.6-10.3); Creatinine, Serum 1.13 mg/dL (0.67-1.17); Globulin 2.1 g/dL (2-4); Total Bilirubin 1.2 mg/dL (0.2-1.0); Total Protein 5.8 g/dL (6.4-8.9); eGFR CKD-EPI 69.1 (>60)
[2022-07-24 13:07] LABS: T4, Total 6.97 mcg/dL (6.09-12.23)
[2022-07-24 13:10] LABS: TSH Ultra Thyroid Stim Horm 0.61 mcIU/mL (0.34-5.60)
[2022-07-24 13:48] LABS: High Sensitivity Troponin 1 Hr 16 pg/mL (<20)
[2022-07-24] MEDS ORDERED: Sulfur Hexaflouride MICROSPHR 25 MG VIAL ONE (15:24)
[2022-07-24 17:07] LABS: Magnesium 2.1 mg/dL (1.9-2.7)
[2022-07-24] MEDS ORDERED: BUMETANIDE 1 MG PO SCH (17:15)
[2022-07-24] MEDS ORDERED: Remdesivir 100 mg Vial 200 MG in NS 0.9% 250 ml 210 ML IV ONE (17:55)
[2022-07-24 21:02] LABS: Albumin 3.9 g/dL (3.2-5.2); Albumin/Globulin Ratio 1.6 (1-3); Creatinine, Serum 0.99 mg/dL (0.67-1.17); Globulin 2.4 g/dL (2-4); Potassium 4.3 mmol/L (3.5-5.0); Total Bilirubin 1.8 mg/dL (0.2-1.0); Total Protein 6.3 g/dL (6.4-8.9); eGFR CKD-EPI 80.9 (>60)
[2022-07-25 06:55] LABS: Hematocrit 50 % (42-52); Hemoglobin 16.3 g/dL (14.0-18.0); INR 1.24 (0.88-1.18); Mean Corpuscular HGB Conc 33 g/dL (31-36); Mean Corpuscular Hemoglobin 28 pg (27-31); Mean Corpuscular Volume 86 fL (80-94); Mean Platelet Volume 10.1 fL (7.4-10.4); Platelet Count 127 10^3/uL (150-450); Red Cell Distribution Width 16 % (10-15); White Blood Count 5.8 10^3/uL (3.5-10.8)
[2022-07-25 08:43] LABS: Urine Appearance Clear; Urine Bilirubin Negative (Negative); Urine Blood 1+ (Negative); Urine Color Yellow; Urine Glucose 3+(>=500 mg/dL) (Negative); Urine Ketones Negative (Negative); Urine Nitrite Negative (Negative); Urine Protein 1+(30 mg/dL) (Negative); Urine Specific Gravity 1.026 (1.002-1.030); Urine Urobilinogen Negative (Negative)
[2022-07-25 08:56] LABS: Urine Bacteria Absent (Absent); Urine Red Blood Cell Trace(0-2/hpf) (Absent); Urine Squamous Epithelial Cell Present (Absent); Urine White Blood Cell Trace(0-5/hpf) (Absent)
[2022-07-25] MEDS ORDERED: BUMETANIDE 1 MG PO SCH (09:00)
[2022-07-25] MEDS ORDERED: Aspirin EC 81 mg TAB.EC (enteric coated) PO SCH (09:00)
[2022-07-25] MEDS ORDERED: Bumetanide IV 0.25 MG/ML 4 ml VIAL (1 mg) IV SLOW PU ONE (11:00)
[2022-07-25] MEDS ORDERED: Heparin DRIP 25,000 UNITS BAG 25,000 UNITS/500 ML BAG IV SCH (11:15)
[2022-07-25] MEDS ORDERED: Clindamycin 900 MG/D5W BAG 900 MG/50 ML BAG IVPB ONE (11:50)
[2022-07-25] MEDS ORDERED: Heparin 5000 UNITS/ML 1 mL VIAL IV SCH (12:00)
[2022-07-25 12:38] LABS: ABS Eosinophils 0.2 10^3/ul (0-0.6); ABS Lymphocytes 1.2 10^3/ul (1.0-4.8); ABS Monocytes 0.8 10^3/ul (0-0.8); ABS Neutrophils 4.6 10^3/ul (1.5-7.7); Eosinophil % 2.9 %; Hematocrit 52 % (42-52); Hemoglobin 16.9 g/dL (14.0-18.0); Lymphocyte % 17.3 %; Mean Corpuscular HGB Conc 33 g/dL (31-36); Mean Corpuscular Hemoglobin 28 pg (27-31); Mean Corpuscular Volume 85 fL (80-94); Mean Platelet Volume 9.6 fL (7.4-10.4); Nucleated Red Blood Cells % 0.2; Platelet Count 117 10^3/uL (150-450); Red Blood Count 6.03 10^6 /uL (4.18-5.48); Red Cell Distribution Width 16 % (10-15); White Blood Count 6.8 10^3/uL (3.5-10.8)
[2022-07-25] MEDS: Heparin DRIP 25,000 UNITS BAG 25,000 UNITS/500 ML BAG IV SCH (13:21)
[2022-07-25 13:22] LABS: Creatinine, Serum 1.02 mg/dL (0.67-1.17); eGFR CKD-EPI 78.1 (>60)
[2022-07-25] MEDS ORDERED: Ondansetron 4 mg VIAL 2 MG/ML 2 ml VIAL IV PRN ×2 (15:30→15:32)
[2022-07-25] MEDS ORDERED: fentaNYL 100 mcg/2 ml 50 MCG/ML VIAL IV PRN ×2 (15:30→15:32)
[2022-07-25] MEDS ORDERED: oxyCODONE/Acetamin 5/325 mg TAB PO PRN ×2 (15:30→15:32)
[2022-07-25] MEDS ORDERED: Naloxone 0.4 mg VIAL 0.4 mg/ml 1 ml VIAL IV PRN ×2 (15:30→15:32)
[2022-07-25 17:39] LABS: Direct Bilirubin 0.2 mg/dL (0.03-0.18); Indirect Bilirubin 1.5 mg/dL (0.3-1.0); Total Bilirubin 1.7 mg/dL (0.2-1.0)
[2022-07-25 18:41] LABS: Ferritin 22.4 ng/mL (24-336)
[2022-07-25] MEDS ORDERED: Remdesivir 100 mg Q24H MAINTENANCE DOSING IV SCH (21:00)
[2022-07-26] MEDS: Heparin DRIP 25,000 UNITS BAG 25,000 UNITS/500 ML BAG IV SCH ×2 (04:52→20:54)
[2022-07-26 06:55] LABS: ABS Eosinophils 0.2 10^3/ul (0-0.6); ABS Lymphocytes 1.3 10^3/ul (1.0-4.8); ABS Monocytes 0.8 10^3/ul (0-0.8); ABS Neutrophils 3.6 10^3/ul (1.5-7.7); Eosinophil % 3.5 %; Hematocrit 52 % (42-52); Hemoglobin 16.9 g/dL (14.0-18.0); Lymphocyte % 21.9 %; Mean Corpuscular HGB Conc 33 g/dL (31-36); Mean Corpuscular Hemoglobin 28 pg (27-31); Mean Corpuscular Volume 86 fL (80-94); Mean Platelet Volume 9.9 fL (7.4-10.4); Nucleated Red Blood Cells % 0.1; Platelet Count 118 10^3/uL (150-450); Red Blood Count 6.05 10^6 /uL (4.18-5.48); Red Cell Distribution Width 16 % (10-15); White Blood Count 5.8 10^3/uL (3.5-10.8)
[2022-07-26 07:16] LABS: INR 1.22 (0.88-1.18)
[2022-07-26 07:24] LABS: Albumin 3.8 g/dL (3.2-5.2); Albumin/Globulin Ratio 1.7 (1-3); Calcium 8.8 mg/dL (8.6-10.3); Creatinine, Serum 1.09 mg/dL (0.67-1.17); Globulin 2.3 g/dL (2-4); Magnesium 2.1 mg/dL (1.9-2.7); Total Bilirubin 1.6 mg/dL (0.2-1.0); Total Protein 6.1 g/dL (6.4-8.9); eGFR CKD-EPI 72.1 (>60)
[2022-07-26] MEDS: Iron Sucrose 200 MG in NS 0.9% 100 ml BAG 100 ML IVPB SCH (19:53)
[2022-07-27 06:24] LABS: ABS Eosinophils 0.3 10^3/ul (0-0.6); ABS Lymphocytes 1.2 10^3/ul (1.0-4.8); ABS Monocytes 0.7 10^3/ul (0-0.8); ABS Neutrophils 3.3 10^3/ul (1.5-7.7); Eosinophil % 4.9 %; Hematocrit 52 % (42-52); Hemoglobin 16.9 g/dL (14.0-18.0); Lymphocyte % 21.5 %; Mean Corpuscular HGB Conc 33 g/dL (31-36); Mean Corpuscular Hemoglobin 28 pg (27-31); Mean Corpuscular Volume 86 fL (80-94); Mean Platelet Volume 9.7 fL (7.4-10.4); Nucleated Red Blood Cells % 0.2; Platelet Count 116 10^3/uL (150-450); Red Blood Count 6.01 10^6 /uL (4.18-5.48); Red Cell Distribution Width 16 % (10-15); White Blood Count 5.5 10^3/uL (3.5-10.8)
[2022-07-27 06:54] LABS: Albumin 3.8 g/dL (3.2-5.2); Albumin/Globulin Ratio 1.7 (1-3); Creatinine, Serum 1.1 mg/dL (0.67-1.17); Globulin 2.3 g/dL (2-4); Magnesium 2.2 mg/dL (1.9-2.7); Potassium 3.9 mmol/L (3.5-5.0); Total Bilirubin 1.7 mg/dL (0.2-1.0); Total Protein 6.1 g/dL (6.4-8.9); eGFR CKD-EPI 71.3 (>60)
[2022-07-27 07:21] LABS: INR 1.24 (0.88-1.18)
[2022-07-27 07:44] LABS: Activated Partial Thrombo Time 101.3 seconds (26.0-38.0)
[2022-07-27] MEDS: Iron Sucrose 200 MG in NS 0.9% 100 ml BAG 100 ML IVPB SCH (10:07)
[2022-07-27] MEDS ORDERED: Potassium Chlor 20 meq TAB.ER PO ONE (11:06)
[2022-07-27] MEDS: Heparin DRIP 25,000 UNITS BAG 25,000 UNITS/500 ML BAG IV SCH (13:30)
[2022-07-27] MEDS ORDERED: Senna TAB 8.6 mg TAB PO SCH (21:00)
[2022-07-28] MEDS ORDERED: Buffered Lidocaine 1% SYRIN 1 ml INTRADERM ONE (06:00)
[2022-07-28] MEDS ORDERED: Lactated Ringers 1000 ml BAG 1,000 ML IV SCH (06:00)
[2022-07-28 07:07] LABS: ABS Eosinophils 0.3 10^3/ul (0-0.6); ABS Monocytes 0.7 10^3/ul (0-0.8); ABS Neutrophils 3.5 10^3/ul (1.5-7.7); Hematocrit 51 % (42-52); Hemoglobin 16.8 g/dL (14.0-18.0); Lymphocyte % 18.9 %; Mean Corpuscular HGB Conc 33 g/dL (31-36); Mean Corpuscular Hemoglobin 28 pg (27-31); Mean Corpuscular Volume 86 fL (80-94); Mean Platelet Volume 9.6 fL (7.4-10.4); Platelet Count 123 10^3/uL (150-450); Red Blood Count 5.97 10^6 /uL (4.18-5.48); Red Cell Distribution Width 16 % (10-15); White Blood Count 5.5 10^3/uL (3.5-10.8)
[2022-07-28 07:29] LABS: Calcium 9.2 mg/dL (8.6-10.3); Creatinine, Serum 1.28 mg/dL (0.67-1.17); Magnesium 2.1 mg/dL (1.9-2.7); Potassium 4.2 mmol/L (3.5-5.0); eGFR CKD-EPI 59.5 (>60)
[2022-07-28 07:37] LABS: INR 1.16 (0.88-1.18)
[2022-07-28] MEDS ORDERED: NS 0.9% 1000 ml BAG 1,000 ML IV SCH (08:00)
[2022-07-28] MEDS ORDERED: Polyethylene Glycol 3350 17 GM PACKET PO SCH (08:00)
[2022-07-28] MEDS ORDERED: Midazolam 5 mg/5 ml VIAL 1 mg/ml 5 ml VIAL (5 mg) ONE (08:22)
[2022-07-28] MEDS ORDERED: fentaNYL 100 mcg/2 ml 50 MCG/ML VIAL ONE (08:23)
[2022-07-28] MEDS ORDERED: Ketamine HCL 50 mg/ml 10 ml VIAL (500 MG) ONE (08:25)
[2022-07-28] MEDS ORDERED: Lidocaine 1% VIAL 10 MG/ML VIAL 30 ML ONE (09:14)
[2022-07-28] MEDS: Iron Sucrose 200 MG in NS 0.9% 100 ml BAG 100 ML IVPB SCH (11:53)
[2022-07-28 15:57] VITALS: BP 143/93
[2022-07-29 19:49] LABS: Kappa Free Light Chain 1.66 mg/dL; Lambda Free Light Chain, S 1.34 mg/dL
== END 2022-07-28 17:45 | disposition home or self-care (01) | DRG 242 ==
LOC: EDHOLD 11:26 → ED 11:26 → MEDTELE 19:12
PROVIDERS: ADMIT Internal Medicine Hematology & Oncology; ATTEND Internal Medicine Hematology & Oncology
PROC: O.CATEE (2022-07-28 09:15)